=== PATIENT | male | born 1970 | race Caucasian/White ===

== ENCOUNTER → 2020-03-29 | Day surgery (SDC) | payer OTHER ==
[~2020-03-29] MED LIST: BENTYL 20MG TAB20 MG PO; COLACE100 MG PO; HYDROCODON-ACE1 EAC2 PO; IBUPROFEN600 MG PO; LODINE CAP 300300 MG PO; ZOFRAN ODT 4 MG4 MG PO
== END | disposition home or self-care (01) ==
LOC: OR 07:30
DX: K80.10 Calculus of gallbladder with chronic cholecystitis without obstruction (principal)
CPT/HCPCS: J0690; J1100; J1170; J2001; J2250; J2405; J2704; J2710; J3010; J7030; J7120